=== PATIENT | male | born 1980 | race Caucasian/White ===

== ENCOUNTER 2018-11-29 20:41 | Emergency (ER) | payer MEDICAID ==
[~2018-11-29] VITALS: Ht 165.1 cm; Wt 82.1 kg
[2018-11-29 20:59] VITALS: Ht 165.1 cm; Wt 82.1 kg
[2018-11-30] MEDS ORDERED: HYDROmorphONE 2 MG/ML SYG IM STA (02:50)
[2018-11-30] MEDS ORDERED: ONDANSETRON (ODT) 4 MG TAB ODT STA (02:50)
[2018-11-30] MEDS ORDERED: MED4DP PO (03:17)
[2018-11-30] MEDS ORDERED: CYCL10TA7 PO (03:17)
[2018-11-30] MEDS ORDERED: IBUP800T48 PO (03:17)
[2018-11-30] MEDS ORDERED: HYDR-4011 PO (03:17)
--- NOTE | 2018-11-30 03:19 | ERD ---
ER Documentation Chief Complaint Chief Complaint low back pain x 1 year, worse x 2 days. denies trauma HPI 38-year-old male is here with low back pain. This is chronic for over a year but got worse today. No trauma. He is ambulatory with pain. Pain is in the right side of his lower back and radiates down his lower extremity. No saddle anesthesia or bowel or bladder incontinence. No urinary symptoms. No fever. ROS All systems reviewed and are negative except as per history of present illness. Medications Home Meds Active Scripts Methylprednisolone* (Medrol* DOSE PACK) 4 Mg/Dose-Pack Tab.ds.pk, 4 MG PO . DIRECTED, #1 PACKET Prov:JULIEN FRENCH PA-C 11/30/18 Hydrocodone/Acetaminophen (Homestead 5-325 Tablet) 1 Each Tablet, 1 TAB PO Q6H PRN for PAIN, #15 TAB Prov:JULIEN FRENCH PA-C 11/30/18 Ibuprofen* (Motrin*) 800 Mg Tab, 800 MG PO Q6, #30 TAB Prov:JULIEN FRENCH PA-C 11/30/18 Cyclobenzaprine Hcl* (Cyclobenzaprine Hcl*) 10 Mg Tablet, 10 MG PO TID, #20 TAB Prov:JULIEN FRENCH PA-C 11/30/18 Allergies Allergies: Coded Allergies: No Known Allergy (Unverified , 10/25/12) PMhx/Soc Medical and Surgical Hx: pt denies Medical Hx, pt denies Surgical Hx History of Surgery: No Anesthesia Reaction: No Hx Neurological Disorder: No Hx Respiratory Disorders: No Hx Cardiac Disorders: No Hx Psychiatric Problems: No Hx Miscellaneous Medical Probl: No Hx Alcohol Use: No Hx Substance Use: No Hx Tobacco Use: No Smoking Status: Never smoker FmHx Family History: No diabetes Physical Exam Vitals Vital Signs Date Temp Pulse Resp B/P (MAP) Pulse Ox O2 O2 Flow FiO2 Time Delivery Rate 11/29/18 97.7 80 18 169/98 99 20:59 (121) Physical Exam Const: No acute distress Head: Atraumatic Eyes: Normal Conjunctiva ENT: Normal External Ears, Nose and Mouth. Neck: Full range of motion. No meningismus. Resp: Clear to auscultation bilaterally Cardio: Regular rate and rhythm, no murmurs Back Exam: Skin: No bruising or rash Compartments: Soft Motor: Normal flexion and extension of bilateral hip/knee/ankle/foot Sensation: Intact to light touch throughout Bones: No midline TTP Results 24 hrs Current Medications Medications Dose Sig/Freida Start Time Status Last (Trade) Ordered Route PRN Stop Time Admin Dose Reason Admin 1 mg ONCE STAT 11/30/18 DC 11/30/18 Hydromorphone IM 02:50 03:07 HCl 11/30/18 02:54 (Dilaudid) Ondansetron 8 mg ONCE STAT 11/30/18 DC 11/30/18 HCl (Zofran ODT 02:50 03:07 Odt) 11/30/18 02:54 Procedures/MDM The differential diagnosis includes but is not limited to muscle strain, ligament strain, contusion, arthritis, discogenetic disease, non- musculoskeletal, cauda equina syndrome, cord compression, abscess and others. Patient with acute on chronic back pain. No red flags including bowel or b ladder incontinence or saddle anesthesia. No trauma. No fever. Dilaudid IM given as well as Zofran ODT. Prescription for ibuprofen Flexeril and Homestead and Medrol Dosepak given. Patient counseled regarding my diagnostic impression and care plan. Prior to discharge all questions answered. Pt agrees with treatment plan and understands strict return precautions. Pt is instructed to follow up with primary care provider within 24-48 hours. Precautionary instructions provided including instructions to return to the ER if not improving or for any worsening or changing symptoms or concerns. Departure Diagnosis: Primary Impression: Back pain Condition: Stable Patient Instructions: Back Pain (Acute Or Chronic) Additional Instructions: Llame al doctor TAYLA y deloris bridger SARAH PARA DENTRO DE 1-2 OBONE.Dgale a la secretaria que nosotros le instruimos hacer esta sarah.Avise o llame si friedman condicin se empeora antes de la sarah. Regresa aqui si peor o no mejor. JULIEN FRENCH PA-C Nov 30, 2018 03:19
[2018-11-30 03:37] VITALS: BP 168/78; PULSE 68; RESP 22
== END 2018-11-30 03:39 | disposition home or self-care (01) ==
LOC: FTE 20:41
DX: M54.5 Low back pain (principal)
CPT/HCPCS: 96372; J1170; Z7502; Z7610